=== PATIENT | male | born 1990 | race Two or more races ===

== ENCOUNTER 2020-08-13 20:13 | Emergency (ER) | payer MEDICAID, OTHER, SELFPAY ==
[~2020-08-13] VITALS: Ht 185.4 cm; Wt 142.5 kg
[2020-08-13 20:24] VITALS: BP 125/77
--- NOTE | 2020-08-13 22:08 | NUR ---
Provider at bedside to discuss POC
[2020-08-13] MEDS ORDERED: METHOCARBAMOL 500 MG TABLET ONE (22:21)
[2020-08-13] MEDS ORDERED: IBUPROFEN 800 MG TABLET ONE (22:21)
[2020-08-13] MEDS ORDERED: IBUPROFEN 800 MG TABLET PO ONE (22:30)
[2020-08-13] MEDS ORDERED: METHOCARBAMOL 750 MG TABLET PO ONE (22:30)
== END 2020-08-13 22:47 | disposition home or self-care (01) ==
LOC: ED 21:20
DX: S16.1XXA Strain of muscle, fascia and tendon at neck level, initial encounter (principal); R51.9 Headache, unspecified; V49.09XA Driver injured in collision with other motor vehicles in nontraffic accident, initial encounter; Y93.89 Activity, other specified; Y92.410 Unspecified street and highway as the place of occurrence of the external cause; Y99.8 Other external cause status
CPT/HCPCS: 99283